=== PATIENT | female | born 1990 | race Caucasian/White ===

== ENCOUNTER 2017-05-03 20:06 | Emergency (ER) | payer SELFPAY, OTHER ==
[2017-05-03] MEDS: LACTATED RINGER'S 1,000 ML IV (21:00)
[2017-05-03 22:09] LABS: ADD MAN DIFF? NO
[2017-05-03 22:21] LABS: BASOPHILS % 0.1 % (0.0-2.0); HEMATOCRIT 39.3 % (37.0-47.0); HEMOGLOBIN 13.6 g/dl (12.0-16.0); LYMPHOCYTES # 0.7 10^3/ul (0.8-2.9); MEAN CORPUSCULAR HEMOGLOBIN 29.5 pg (29.0-33.0); MEAN CORPUSCULAR HGB CONC 34.6 g/dl (32.0-37.0); MEAN CORPUSCULAR VOLUME 85.2 fl (82.0-101.0); MEAN PLATELET VOLUME 8.7 fl (7.4-10.4); MONOCYTE # 0.5 10^3/ul (0.3-0.9); MONOCYTES % 4.8 % (0.0-11.0); NEUTROPHIL # 9.7 10^3/ul (1.6-7.5); NEUTROPHILS % 88.5 % (39.0-77.0); PLATELET COUNT 321 10^3/UL (140-415); RED BLOOD COUNT 4.61 10^6/ul (4.20-5.40); RED CELL DISTRIBUTION WIDTH 12.5 % (11.5-14.5)
[2017-05-03 22:21] LABS: WHITE BLOOD COUNT 10.9 10^3/ul (4.8-10.8)
[2017-05-03] MEDS: FAMOTIDINE 20 MG INJ IV (22:33)
[2017-05-03 22:44] LABS: ALANINE AMINOTRANSFERASE 41 IU/L (13-69); ALBUMIN 4.6 g/dl (3.3-4.9); ALBUMIN/GLOBULIN RATIO 1.31; ALKALINE PHOSPHATASE 70 IU/L (42-121); ANION GAP 18 (8-16); ASPARTATE AMINO TRANSFERASE 26 IU/L (15-46); BILIRUBIN,INDIRECT 0.8 mg/dl (0-1.1); BILIRUBIN,TOTAL 0.8 mg/dl (0.2-1.3); BLOOD UREA NITROGEN 8 mg/dl (7-20); CALCIUM 9.2 mg/dl (8.4-10.2); CARBON DIOXIDE 23 mmol/L (21-31); CHLORIDE 102 mmol/L (97-110); CREATININE 0.61 mg/dl (0.44-1.00); GLUCOSE 109 mg/dl (70-220); LIPASE 36 U/L (23-300); POTASSIUM 3.2 mmol/L (3.5-5.1); SODIUM 140 mmol/L (135-144); TOTAL PROTEIN 8.1 g/dl (6.1-8.1)
[2017-05-03] MEDS: morphine 2 MG INJ IV (23:28)
[2017-05-03] MEDS: ONDANSETRON 4 MG INJ IV (23:28)
[2017-05-04] MEDS: POTASSIUM CHLORIDE (SR) 20 MEQ TAB PO (00:10)
[2017-05-04] MEDS: CIPROFLOXACIN 500 MG TAB PO (00:45)
[2017-05-04] MEDS: ACETAMINOPHEN 500 MG TAB PO (00:55)
== END 2017-05-04 00:58 | disposition home or self-care (01) ==
LOC: FTE 05-04 00:58
DX: K52.9 Noninfective gastroenteritis and colitis, unspecified (principal)
CPT/HCPCS: 74176; 80053; 83690; 85025; 96361; 96374; 96375; 99285-25